=== PATIENT | male | born 1995 | race Caucasian/White ===

== ENCOUNTER 2025-04-09 23:22 | Emergency (ER) | payer BC, SELFPAY ==
[2025-04-09 23:24] VITALS: BP 155/96
--- NOTE | 2025-04-10 00:29 | ED.GENMED ---
History of Present Illness
General
Chief Complaint: Abdominal Symptoms
Source: patient
Exam Limitations: none
Time Seen by Provider: 04/10/25 00:14
Nursing documentation reviewed up to this point in time: agreed with
History of Present Illness
History of Present Illness:
29-year male limited past medical history nausea vomiting diarrhea since 5 PM multiple episodes nonbloody nonbilious had [employer] for lunch no one else has been sick, drinks socially not excess no drugs no prior abdominal surgery no foreign
travel no recent antibiotics no sick contacts
Past History
Past History
ED Past Medical History: None
ED Past Surgical History: None
Social History
Tobacco: Non-smoker
Alcohol: Occasional
Drug: None
Personal:
Living: with family
Employment: Employed
Review of Systems
Review of Systems
All Other Systems: Not applicable
Constitutional: Reports fatigue; Denies fever
EENT: Reports no symptoms
Respiratory: Reports no symptoms
Cardiac: Reports no symptoms
ABD/GI: Reports abdominal pain, nausea, vomiting and diarrhea
Phy Exam
Physical Exam
Physical Exam:
Physical Exam
General: 29 male looks uncomfortable
Neck: Dry lips
Heart: s1/s2 regular rate and rhythm, no murmur. equal radial pulses.
Lungs: no acute respiratory distress. clear bilaterally
Abdomen: Soft mild diffuse tender
Neuro: alert and oriented. no focal neurological deficits
Skin: no rash
Psychiatric: well kept. interactive and cooperative
Extremities: no edema.
Course
Orders/Labs/Results
Orders:
Orders
04/10/25 00:28
0.9% Sodium Chloride 1000 ml [Nss] 2,000 ml IV BOLUS
Ondansetron Injectable [Zofran] 4 mg IV NOW STA
04/10/25 00:55
Complete Blood Count/With Diff Urgent
Comprehensive Metabolic Panel Urgent
04/10/25 01:02
0.9% Sodium Chloride 1000 ml [Nss] 1,000 ml IV BOLUS
04/10/25 01:30
Ketorolac [Toradol] 30 mg IV NOW STA
04/10/25 01:31
Acetaminophen 1000MG/100Ml [Ofirmev] 1,000 mg in 100 ml IV ONCE
Acetaminophen IV Indication:: ED Narcotic Naive Pt-ONCE
Diphenhydramine [Benadryl] 25 mg IV NOW STA
Abnormal Lab Results
04/10/25
00:55
WBC 13.3 H 10^3/uL
(4.8-10.8)
MCH 32.5 H pg
(27.0-31.0)
MCHC 37.2 H g/dL
(33.0-37.0)
Abs Immat Gran (auto) 0.1 H 10^3/uL
(0-0.05)
Absolute Neuts (auto) 11.4 H 10^3/uL
(1.4-6.5)
Absolute Lymphs (auto) 0.4 L 10^3/uL
(1.2-3.4)
Absolute Monos (auto) 1.3 H 10^3/uL
(0.1-0.6)
Neutrophils % 86.0 H %
(42.2-75.2)
Lymphocytes % 3.2 L %
(20.5-51.1)
Monocytes % 9.8 H %
(1.7-9.3)
BUN 23 H mg/dl
(9-20)
Glucose 130 H mg/dl
(70-99)
Albumin 5.3 H g/dl
(3.5-5.0)
04/10/25 00:55
04/10/25 00:55
Vital Signs
Initial and Last Documented VS:
Initial Vital Signs
Temp Pulse Resp BP Pulse Ox
97.4 F 104 18 155/96 100
04/09/25 23:24 04/09/25 23:24 04/09/25 23:24 04/09/25 23:24 04/09/25 23:24
Last Documented Vital Signs
Temp Pulse Resp BP Pulse Ox
98.5 F 124 20 111/66 95
04/10/25 01:24 04/10/25 03:41 04/10/25 03:41 04/10/25 03:41 04/10/25 03:41
MDM/Problems Addressed
Differential Diagnosis Includes:
Enteritis infectious colitis norovirus
MDM/Problems Addressed:
Vomiting diarrhea
*Pulse Oximetry
SaO2: 100
Oxygen Mode of Delivery: Room air
Patient hypoxic: no
*Critical Care Note
Total Time (30-74mins, 75-104mins- exclusive of procedures): Not Applicable
Update Note
Update Note:
Will start saline hydration antiemetics IV fluids screening blood work serial abdominal exams
3 AM update patient feeling better abdomen soft nontender
ED Attending Note
-
Portions of this chart may have been created with voice recognition software.� Occasional wrong word or��sound alike� substitutions may have occurred due to the inherent limitations of voice recognition software.
Discharge Plan
Departure
Patient Disposition: Home (Routine Discharge)
Date of Disposition: 04/10/25
Time of Disposition: 04:19
Patient with high blood pressure during this ER visit?: No
Condition: Good
Discharge Problem:
Vomiting, Acute diarrhea
Instructions: Diarrhea in teens and adults, [place] Diet, Nausea and Vomiting, Adult (DC), Abdominal Pain
Prescriptions:
New
ondansetron 4 mg tablet,disintegrating
4 mg PO Q8H PRN (Reason: nausea and vomiting) Qty: 10 0RF
loperamide [Imodium A-D] 2 mg capsule
2 mg PO Q6H PRN (Reason: loose stool) Qty: 14 0RF
Activity Restrictions/Additional Instructions:
Return to the ER if recurrent or worsening symptoms or any other concerns
Interventions
Interventions:
*General Assessment Last Done: 04/09/25 23:24
*Neglect/Abuse Screening Last Done: 04/10/25 01:25
*ED COVID-19 Vaccine History Last Done: 04/10/25 01:25
*ED Influenza Vaccine History Last Done: 04/10/25 01:25
[facility] Fall Risk Assessment Tool Last Done: 04/10/25 01:24
*Risk Screen - Suicide (C-SSRS) Last Done: 04/09/25 23:28
*Nursing Disposition Last Done: 04/10/25 04:35
CT-Cbyoyu-Klrbqcjyph Assessment Last Done: 04/10/25 01:25
Discharge Date and Time
Discharge Date/Time: 04/10/25 04:35
Print Language: CANADIAN
[2025-04-10 00:52] VITALS: BP 140/96
[2025-04-10 01:00] VITALS: BP 123/62
[2025-04-10] MEDS: ZOFRAN 4 MG IV (01:00)
[2025-04-10] MEDS: NSS 1000 IV (01:02)
[2025-04-10 01:05] LABS: Hematocrit 48.4 % (39.0-52.0); Hemoglobin 18.0 g/dL (13.0-18.0); Mean Corp Hgb Conc. 37.2 g/dL (33.0-37.0); Mean Corpuscular Volume 87.5 fL (80.0-94.0); Nucleated Red Blood Cells % 0 % (-); Platelet Count 229 10^3/uL (130-400); Red Cell Dist. Width 11.5 % (11.5-14.5)
[2025-04-10 01:27] LABS: ALT (SGPT) 34 U/L (0-50); AST (SGOT) 31 U/L (17-59); Albumin 5.3 g/dl (3.5-5.0); Alkaline Phosphatase 70 U/L (38-126); Blood Urea Nitrogen 23 mg/dl (9-20); Calcium 10.0 mg/dl (8.4-10.2); Carbon Dioxide 26 mmol/L (22-30); Chloride 102 mmol/L (98-107); Glucose 130 mg/dl (70-99); Potassium 4.2 mmol/L (3.5-5.1); Sodium 139 mmol/L (135-145); Total Protein 8.2 g/dl (6.3-8.2); eGFR > 60.00
[2025-04-10] MEDS: TORADOL 30 MG IV (01:37)
[2025-04-10] MEDS: BENADRYL 25 MG IV (01:39)
[2025-04-10] MEDS: OFIRMEV 100 IV (01:41)
[2025-04-10 03:40] VITALS: BP 111/66
[2025-04-10 03:41] VITALS: BP 111/66
== END 2025-04-10 04:35 | disposition home or self-care (01) ==
LOC: EMR 23:22
PROVIDERS: EMERGENCY PHYSICIAN Emergency Medicine
DX: R11.10 Vomiting, unspecified (principal); R19.7 Diarrhea, unspecified
CPT/HCPCS: 99284; 96374; 96375 ×2; 96361; 80053; 85025